=== PATIENT | male | born 1975 | race Caucasian/White ===

== ENCOUNTER 2018-07-13 10:07 | Emergency (ER) | payer MEDICAID ==
[2018-07-13] MEDS ORDERED: ALPRAZOLAM 0.5 MG TABLET PO ONE (11:03)
[2018-07-13 11:04] VITALS: BP 145/95
--- NOTE | 2018-07-13 11:10 | ER Document Report ---
ED General - General Mode of Arrival: Ambulatory Information source: Patient TRAVEL OUTSIDE OF THE U.S. IN LAST 30 DAYS: No - General Chief Complaint: Psych Problem Stated Complaint: PSYCH EVAL Time Seen by Provider: 07/13/18 10:52 Primary Care Provider: [facility] [Outside] - Follow up as needed - [facility] Notes: Patient is a 42-year-old male history of depression and anxiety presents to the emergency department with report that he has not been taking any Klonopin or medications for depression for the last 6-8 months and found out yesterday that his 15-year-old daughter who is in [place] attempted suicide. She is apparently alive, but his ex- will not let him have any contact with her. He states that 1 month ago the daughter had gone to a psychiatric facility previously. The patient reports he was doing fine 2 days ago but last night he did not sleep and states she feels anxious and nervous. He denies any suicidal or homicidal ideation no hallucinations. No alcohol use. Patient reports a skin rash he has noted for the last month intermittently more so on the chest where he shaves. He denies any fever or chills. No chest pain or shortness of breath or abdominal pain or difficulty breathing or abdominal pain. (MELIDA LAZAR) - Related Data Allergies/Adverse Reactions: Penicillins Allergy (Verified 07/13/18 10:09) Past Medical History - General Information source: Patient - Social History Smoking Status: Current Every Day Smoker Chew tobacco use (# tins/day): No Frequency of alcohol use: Occasional Drug Abuse: Marijuana Lives with: Family Family History: Other - Psychiatric Patient has suicidal ideation: No Patient has homicidal ideation: No Renal/ Medical History: Denies: Hx Peritoneal Dialysis Psychiatric Medical History: Reports: Hx Depression Past Surgical History: Reports: Hx Abdominal Surgery - hernia x2 Review of Systems - Review of Systems -: Yes All other systems reviewed and negative Physical Exam - Vital signs Vitals: Temp Pulse Resp BP Pulse Ox 97.9 F 77 16 147/107 H 98 07/13/18 10:24 07/13/18 10:24 07/13/18 10:24 07/13/18 10:24 07/13/18 10:24 - Notes Notes: PHYSICAL EXAMINATION: GENERAL: Well-appearing, well-nourished and in no acute distress. HEAD: Atraumatic, normocephalic. EYES: Pupils equal round and reactive to light, extraocular movements intact, sclera anicteric, conjunctiva are normal. ENT: Nares patent, oropharynx clear without exudates. Moist mucous membranes. NECK: Normal range of motion, supple without lymphadenopathy LUNGS: Breath sounds clear to auscultation bilaterally and equal. No wheezes rales or rhonchi. HEART: Regular rate and rhythm without murmurs ABDOMEN: Soft, nontender, nondistended abdomen. No guarding, no rebound. No masses appreciated. Musculoskeletal: Normal range of motion, no pitting or edema. No cyanosis. NEUROLOGICAL: Cranial nerves grossly intact. Normal speech, normal gait. Normal sensory, motor exams PSYCH: Normal mood, normal affect. SKIN: Warm, Dry, normal turgor. Patient does have mild impetigo on the front of his chest where he has shaved. No other locations. No intertriginous areas or burrowing lesions or suggestion for scabies. (MELIDA LAZAR) Course - Re-evaluation Re-evalutation: 07/13/18 11:09 Patient was given Xanax and will see the psychiatric counselor for further evaluation and to discuss resources. Initial blood pressure somewhat elevated 147/107 but after he calmed down it was 145/95. Patient does not present an imminent risk to himself or others at the current time. 07/13/18 12:05 Patient was seen and evaluated by psychiatry who agreed that patient was stable for outpatient management. He was given a list of resources to follow-up with. (MELIDA LAZAR) - Vital Signs Vital signs: Temp Pulse Resp BP Pulse Ox 97.9 F 77 16 145/95 H 98 07/13/18 10:24 07/13/18 10:24 07/13/18 10:24 07/13/18 11:04 07/13/18 10:24 Discharge - Discharge Clinical Impression: Anxiety, Impetigo Condition: Stable Disposition: HOME, SELF-CARE Instructions: Impetigo ([facility]), Bactroban Ointment ([facility]), Anxiety ([facility]) Additional Instructions: You have been evaluated both medical and behavioral health teams and been deemed appropriate for discharge. You have provided a local resource list of area providers including mobile crisis contact information. Anxiety The physician feels that some of your health problems are being caused by anxiety. Anxiety affects your health in many ways. Anxiety alone can cause palpitations, sweats, chest pains, abdominal pains, shortness of breath, and headaches. It contributes to ulcer disease, high blood pressure, irritable bowel syndrome, and has been shown to cause flare-ups of many other diseases. Anxiety is not a simple disorder to treat. If the anxiety is due to recent life stresses, you may simply need time to "work through" the changes. If the anxiety is due to an underlying unhappiness with yourself or due to psychiatric disturbance, professional help will be needed. Your physician can refer you for further help if needed. Anti-anxiety medication is occasionally given if the stress is acute or if you are having trouble sleeping. Chronic or frequent use of these medications is not a good idea because the body becomes reliant on it, preventing you from dealing with life's normal stresses. AT ANY TIME, IF YOUR SYMPTOMS CHANGE SIGNIFICANTLY OR WORSEN OR YOU DEVELOP NEW SYMPTOMS, RETURN TO THE EMERGENCY DEPARTMENT IMMEDIATELY FOR RE-EVALUATION. Prescriptions: Alprazolam [Xanax 0.5 mg Tablet] 0.5 mg PO Q6HP PRN #10 tablet PRN Reason: Mupirocin Calcium [Bactroban 2% Cream 15 gm] 1 applic TP BID #1 tube Forms: Return to Work Referrals: [facility] [Outside] - Follow up as needed
--- NOTE | 2018-07-13 12:40 | PSYCHOLOGICAL NOTE ---
Psych Note - Psych Note Date seen by psych provider: 07/13/18 Time seen by psych provider: 12:15 Psych Note: Reason for Consult: Anxiety Patient is a 42-year-old male history of depression and anxiety presents to the emergency department with report that he has not been taking any Klonopin or medications for depression for the last 6-8 months and found out yesterday that his 15-year-old daughter who is in [place] attempted suicide. Patient is alert and orientated to person, place, time and circumstance. Mood is dysphoric with tearful affect. Patient denies suicidal and homicidal ideations. Delusions are absent behaviors congruent with an intact reality b ased presentation i.e. organized and linear thought process. Eye contact is poor. Conversational speech is within normal rate, tone and prosody. Intellectual abilities appear to be within the average range. Attention and concentration are good. Insight, judgment, impulse control are good as evidenced by patient coming to [facility] when in crisis after being unable to engage in normal coping skills. No medication recommendations at this time 300.00 (F41.9) Unspecified Anxiety Disorder Impression/Plan: Patient is cleared from acute psychiatric services. Patient does not meet IVC criteria per [place] GS 122C. Patient reports being overwhelmed. He just found out that his daughter attempted to kill herself last night. His daughter lives in [place] and he has been unable to locate which hospital she is at. He confirms that he has spoken to her while she is in the hospital however since that conversation the biological mother has refused to allow him to receive any information. Patient effectively engaged in organized and linear conversation and was positive with problem solving skills. Patient received resource list of area providers including mobile crisis contact information. Clinician discussed HIPAA laws in regards to the patient's frustration of not being able to receive any information over the phone from [place] hospitals. Dr. Harkins was consulted on the care and management of this patient; attending physician is in agreement with recommendations and disposition.
== END 2018-07-13 12:28 | disposition home or self-care (01) ==
LOC: ER 10:07
DX: F41.9 Anxiety disorder, unspecified (principal); L01.00 Impetigo, unspecified; F17.200 Nicotine dependence, unspecified, uncomplicated; Z88.0 Allergy status to penicillin
CPT/HCPCS: 99284

== ENCOUNTER 2018-08-22 18:32 | Emergency (ER) | payer SELFPAY ==
[2018-08-22 18:40] VITALS: BP 134/92
[2018-08-22] MEDS ORDERED: NORMAL SALINE 1000 ML 1,000 ML IV ONE (20:13)
[2018-08-22] MEDS ORDERED: DICYCLOMINE HCL 20 MG TABLET PO ONE (20:13)
[2018-08-22] MEDS ORDERED: ONDANSETRON HCL INJ/PF 4 MG/2 ML SDV IV ONE (20:13)
--- NOTE | 2018-08-22 20:16 | ER Document Report ---
ED Medical Screen (RME) - General Chief Complaint: Abdominal Cramping Stated Complaint: CRAMPS/NAUSEA Time Seen by Provider: 08/22/18 20:13 Notes: Patient is a 42-year-old male who presents emergency department with a chief complaint of cramps and dehydration. He states that he had his symptoms today. He states he felt he worked too hard at work. 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 Patient states that he sweats profusely. Has cramps in his abdomen and in his hands. Complains of nausea. Exam: Abdomen soft I have greeted and performed a rapid initial assessment of this patient. A comprehensive ED assessment and evaluation of the patient, analysis of test results and completion of medical decision making process will be conducted by an additional ED providers. TRAVEL OUTSIDE OF THE [place] IN LAST 30 DAYS: No - Related Data Allergies/Adverse Reactions: Penicillins Allergy (Verified 07/13/18 10:09) Past Medical History Renal/ Medical History: Denies: Hx Peritoneal Dialysis Psychiatric Medical History: Reports: Hx Depression Past Surgical History: Reports: Hx Abdominal Surgery - hernia x2 Physical Exam - Vital signs Vitals: Temp Pulse Resp BP Pulse Ox 98.1 F 129 H 18 134/92 H 100 08/22/18 18:39 08/22/18 18:39 08/22/18 18:39 08/22/18 18:39 08/22/18 18:39 Course - Vital Signs Vital signs: Temp Pulse Resp BP Pulse Ox 98.1 F 129 H 18 134/92 H 100 08/22/18 18:39 08/22/18 18:39 08/22/18 18:39 08/22/18 18:39 08/22/18 18:39
[2018-08-22 20:29] LABS: APPEARANCE,URINE CLOUDY; BILIRUBIN,URINE SMALL (NEGATIVE); COLOR,URINE DARK YELLOW; GLUCOSE, URINE NEGATIVE (NEGATIVE); KETONES,URINE TRACE mg/dL (NEGATIVE); LEUKOCYTE ESTERASE,URINE SMALL (NEGATIVE); NITRITE,URINE NEGATIVE (NEGATIVE); PROTEIN,URINE 30 mg/dL (NEGATIVE); URINE SPECIFIC GRAVITY 1.026
== END 2018-08-23 00:06 | disposition left against medical advice (07) ==
LOC: ER 18:32
DX: R10.9 Unspecified abdominal pain (principal); R61 Generalized hyperhidrosis; R11.0 Nausea; Z88.0 Allergy status to penicillin
CPT/HCPCS: 99281; 96374; 81001; J3490; J2405; J7030; 96361

== ENCOUNTER 2019-01-14 17:11 | Emergency (ER) | payer SELFPAY ==
[2019-01-14] MEDS ORDERED: ONDANSETRON HCL INJ/PF 4 MG/2 ML SDV IV ONE (18:39)
[2019-01-14] MEDS ORDERED: NORMAL SALINE 1000 ML 1,000 ML IV ONE ×2 (18:39→21:39)
--- NOTE | 2019-01-14 18:41 | ER Document Report ---
ED Medical Screen (RME) - General Chief Complaint: Pain All Over Stated Complaint: POSSIBLE DEHYDRATION,CRAMPING Time Seen by Provider: 01/14/19 18:37 Mode of Arrival: Ambulatory Information source: Patient Notes: 43-year-old male presents the emergency department with body cramps all over. 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 Reports he has been working outside all day sweating and drinking fluids. Patient is dry now. Reports he vomited upon arrival. Reports his whole body is cramping up. Denies fever diarrhea. I have greeted and performed a rapid initial assessment of this patient. A comprehensive ED assessment and evaluation of the patient, analysis of test results and completion of the medical decision making process will be conducted by additional ED providers. Dictation of this chart was performed using voice recognition software; therefore, there may be some unintended grammatical errors. TRAVEL OUTSIDE OF THE [place] IN LAST 30 DAYS: No - Related Data Allergies/Adverse Reactions: Penicillins Allergy (Verified 01/14/19 18:31) Past Medical History - Social History Frequency of alcohol use: Occasional Renal/ Medical History: Denies: Hx Peritoneal Dialysis Psychiatric Medical History: Reports: Hx Depression Past Surgical History: Reports: Hx Abdominal Surgery - hernia x2 Physical Exam - Vital signs Vitals: Temp Pulse Resp BP Pulse Ox 98.0 F 108 H 20 141/96 H 99 01/14/19 18:08 01/14/19 18:08 01/14/19 18:08 01/14/19 18:08 01/14/19 18:08 Course - Vital Signs Vital signs: Temp Pulse Resp BP Pulse Ox 98.0 F 108 H 20 141/96 H 99 01/14/19 18:08 01/14/19 18:08 01/14/19 18:08 01/14/19 18:08 01/14/19 18:08
[2019-01-14 19:05] LABS: APPEARANCE,URINE SLIGHTLY-CLOUDY; BILIRUBIN,URINE NEGATIVE (NEGATIVE); COLOR,URINE YELLOW; GLUCOSE, URINE NEGATIVE (NEGATIVE); KETONES,URINE NEGATIVE (NEGATIVE); LEUKOCYTE ESTERASE,URINE TRACE (NEGATIVE); NITRITE,URINE NEGATIVE (NEGATIVE); PROTEIN,URINE NEGATIVE (NEGATIVE); URINE SPECIFIC GRAVITY 1.008; UROBILINOGEN,URINE NEGATIVE mg/dL (<2.0)
[2019-01-14 19:10] LABS: ABSOLUTE BASOPHILS # (AUTO) 0.1 10^3/uL (0.0-0.2); ABSOLUTE LYMPHOCYTES (AUTO) 1.9 10^3/uL (0.5-4.7); ABSOLUTE MONOCYTES (AUTO) 0.6 10^3/uL (0.1-1.4); BASOPHILS % (AUTO) 0.7 % (0-2); EOSINOPHILS % (AUTO) 0.2 % (0-6); HEMATOCRIT 45.3 % (37.9-51.0); HEMOGLOBIN 15.7 g/dL (13.5-17.0); LYMPHOCYTES % (AUTO) 12.3 % (13-45); MEAN CORPUSCULAR HEMOGLOBIN 31.4 pg (27.0-33.4); MEAN CORPUSCULAR HGB CONC 34.7 g/dL (32.0-36.0); MEAN CORPUSCULAR VOLUME 91 fl (80-97); MONOCYTES % (AUTO) 3.7 % (3-13); PLATELET COUNT 245 10^3/uL (150-450); SEGMENTED NEUTROPHILS % (AUTO) 83.1 % (42-78); TOTAL CELLS COUNTED % (AUTO) 100 %; WHITE BLOOD COUNT 15.6 10^3/uL (4.0-10.5)
[2019-01-14 19:52] LABS: ALBUMIN 5.2 g/dL (3.5-5.0); ALKALINE PHOSPHATASE 74 U/L (38-126); ANION GAP 15 (5-19); ASPARTATE AMINO TRANSFERASE 39 U/L (17-59); BILIRUBIN,DIRECT 0.2 mg/dL (0.0-0.4); BILIRUBIN,TOTAL 0.9 mg/dL (0.2-1.3); BLOOD UREA NITROGEN 25 mg/dL (7-20); CARBON DIOXIDE 24 mmol/L (22-30); CHLORIDE 94 mmol/L (98-107); CREATINE KINASE 191 U/L (55-170); GLUCOSE 116 mg/dL (75-110); POTASSIUM 4.3 mmol/L (3.6-5.0); TOTAL PROTEIN 7.8 g/dL (6.3-8.2)
[2019-01-14] MEDS ORDERED: DIPHENHYDRAMINE HCL 50 MG/ML VIAL IV ONE (21:39)
[2019-01-14] MEDS ORDERED: KETOROLAC TROMETHAMINE INJ/PF 30 MG/1 ML SDV IV ONE (21:39)
[2019-01-14] MEDS ORDERED: PROCHLORPERAZINE EDISYLATE INJ 10 MG/2 ML VIAL IV ONE (21:39)
[2019-01-14 22:34] VITALS: BP 121/77
--- NOTE | 2019-01-14 23:46 | ER Document Report ---
ED General - General Chief Complaint: Pain All Over Stated Complaint: POSSIBLE DEHYDRATION,CRAMPING Time Seen by Provider: 01/14/19 18:37 Mode of Arrival: Ambulatory Notes: 43-year-old male presents emergency department complaining of dehydration and cramping as well as muscle spasms in his legs and his back. States that he was working outside and sweating heavily and since then he has been having the symptoms. Also admits to vomiting once and having diarrhea twice neither of which had any blood in them. Denies any fevers or chills. Admits a history of Mario's disease and states that previously when he is gotten overheated the symptoms have have never resolved with fluids. Patient also states that he has a migraine headache that starts on his right-hand side and radiates around his head. Feels like his prior migraines. Admits neck pain but denies any change with movement of his back. Denies any difference from his prior migraines. Denies any numbness, tingling, weakness or blurry vision. States that he did not take his Imitrex because he has not had a prescription in some time. TRAVEL OUTSIDE OF THE [place] IN LAST 30 DAYS: No - Related Data Allergies/Adverse Reactions: Penicillins Allergy (Verified 01/14/19 18:31) Past Medical History - General Information source: Patient - Social History Smoking Status: Current Every Day Smoker Frequency of alcohol use: Occasional Drug Abuse: None Family History: Reviewed & Not Pertinent, Other - Psychiatric Patient has suicidal ideation: No Patient has homicidal ideation: No Renal/ Medical History: Denies: Hx Peritoneal Dialysis Psychiatric Medical History: Reports: Hx Depression Past Surgical History: Reports: Hx Abdominal Surgery - hernia x2 Review of Systems - Review of Systems Constitutional: See HPI, Diaphoresis EENT: No symptoms reported Cardiovascular: No symptoms reported Respiratory: No symptoms reported Gastrointestinal: See HPI Musculoskeletal: See HPI Neurological/Psychological: See HPI -: Yes All other systems reviewed and negative Physical Exam - Vital signs Vitals: Temp Pulse Resp BP Pulse Ox 98.0 F 108 H 20 141/96 H 99 01/14/19 18:08 01/14/19 18:08 01/14/19 18:08 01/14/19 18:08 01/14/19 18:08 Interpretation: Tachycardic - Notes Notes: GENERAL: Awake, interacts well, appears uncomfortable. HEAD: Normocephalic, atraumatic EYES: Pupils equal, round and reactive to light, extraocular movements intact. ENT: Oral mucosa moist, tongue midline. NECK: Full range of motion, supple, trachea midline. Adjustments, negative Kernig's and Brudzinski sign. LUNGS: Clear to auscultation bilaterally, no wheezes, rales or rhonchi, no respiratory distress. HEART: Mildly tachycardic rate and rhythm, no murmurs, gallops, rubs. ABDOMEN: Soft, nontender, nondistended, bowel sounds present in all 4 quadrants. EXTREMITIES: Moves all 4 extremities spontaneously, no edema, radial and dorsalis pedis pulses 2/4 bilaterally. No cyanosis. NEUROLOGICAL: Alert and oriented x3, normal speech, cranial nerves II through XII grossly intact, biceps and patellar DTRs 2+ bilaterally. PSYCH: Normal mood, normal affect. SKIN: Warm, diaphoretic, normal turgor, no rashes or lesions noted. Course - Re-evaluation Re-evalutation: 01/15/19 00:15 CBC shows leukocytosis of 15.6, sodium slightly low 133, BUN and creatinine elevated at 25 and 1.52, patient states he has been told in the past that he has kidney disease, patient was hydrated and encouraged to follow-up on this and have repeat kidney function performed in 1 to 2 weeks. I do not have any old values to compare to, urinalysis shows trace leukocyte esterase, only 1 RBC, no evidence of rhabdomyolysis. Patient was treated with Toradol, Compazine and Benadryl, feels much better, hydrated with normal saline and would like to go home. - Vital Signs Vital signs: Temp Pulse Resp BP Pulse Ox 97.9 F 88 18 121/77 96 01/14/19 22:33 01/14/19 22:33 01/14/19 22:33 01/14/19 22:33 01/14/19 22:33 - Laboratory Result Diagrams: 01/14/19 18:58 01/14/19 18:58 Laboratory results interpreted by me: 01/14/19 01/14/19 01/14/19 18:48 18:58 18:58 WBC 15.6 H Lymph % (Auto) 12.3 L Absolute Neuts (auto) 13.0 H Seg Neutrophils % 83.1 H Sodium 133.0 L Chloride 94 L BUN 25 H Creatinine 1.52 H Est GFR (MDRD) Non-Af 51 L Glucose 116 H Calcium 11.0 H Creatine Kinase 191 H Albumin 5.2 H Ur Leukocyte Esterase TRACE H Discharge - Discharge Clinical Impression: Dehydration, Mario disease Migraine Qualifiers: Migraine type: unspecified Status migrainosus presence: with status migrainosus Intractability: intractable Qualified Code(s): G43.911 - Migraine, unspecified, intractable, with status migrainosus Condition: Stable Disposition: HOME, SELF-CARE Additional Instructions: Migraine Headache The physician feels that your symptoms are due to a migraine attack. Migraines are caused by changes in the blood vessels of the head. Arteries go into spasm, often causing warning symptoms that a headache may begin soon. As the spasm goes away, the vessels dilate and throb, causing the pounding pain of a migraine headache. Migraines often cause nausea and vomiting. The treatment of headaches varies with severity and cause of pain. Not all headaches need pain shots -- in fact, there is evidence that using narcotics for headaches may make them worse in the long run. The physician will determine the therapy that's in your best interest for this particular headache. Medications are available that may prevent migraines, or stop them as they first occur. If one medication is not helpful, try another. If migraines are frequent, be patient -- follow the doctor's recommendations. Call the physician if you are worsening, or if new symptoms arise.
== END 2019-01-14 23:55 | disposition home or self-care (01) ==
LOC: ER 17:11
DX: E86.0 Dehydration (principal); G43.911 Migraine, unspecified, intractable, with status migrainosus; E74.04 McArdle disease; R11.10 Vomiting, unspecified; R19.7 Diarrhea, unspecified; M54.2 Cervicalgia; R61 Generalized hyperhidrosis; R00.0 Tachycardia, unspecified; D72.829 Elevated white blood cell count, unspecified; F17.200 Nicotine dependence, unspecified, uncomplicated; Z88.0 Allergy status to penicillin
CPT/HCPCS: 99284; 96361; 96374; 96375; 36415; 82550; 85025; 80053; 81001; J1200; J1885; J0780; J2405; J7030

== ENCOUNTER 2019-03-29 16:51 | Emergency (ER) | payer SELFPAY ==
[2019-03-29] MEDS ORDERED: CYCLOBENZAPRINE HCL 10 MG TABLET PO ONE (17:51)
[2019-03-29] MEDS ORDERED: DEXAMETHASONE SOD PHOS INJ 10 MG/1 ML VIAL IM ONE (17:51)
[2019-03-29] MEDS ORDERED: KETOROLAC TROMETHAMINE 60 MG/2 ML SDV IM ONE (17:51)
--- NOTE | 2019-03-29 17:57 | ER Document Report ---
HPI - HPI Time Seen by Provider: 03/29/19 17:43 Pain Level: 4 Notes: A 43-year-old male with a history of lower back pain presents to the ED for acute onset of low back pain after he felt a pop in his lower back yesterday. Patient states pain is 8 out of 10, throbbing achy. Denies any fevers chills. Has tried qhav-moh-wiejnus ibuprofen Tylenol without relief. Worse with time, nothing makes better. Patient states pain is worse when he bends his knees. Denies any bowel bladder dysfunction. Denies fevers, chills, chest pain,palpitations, shortness of breath, dyspnea, nausea, vomiting, diarrhea, abdominal pain, hematuria, LH, dizziness, syncope, headaches, wheezing, ST, URI, neck pain, weakness, bowel or bladder dysfunction, saddle anesthesia, numbness or tingling in bilateral upper or lower extremities equally, muscle paralysis, weakness in bilateral upper or lower extremities equally or rash. - REPRODUCTIVE Reproductive: DENIES: : Past Medical History - General Information source: Patient - Social History Smoking Status: Current Every Day Smoker Chew tobacco use (# tins/day): No Frequency of alcohol use: Occasional Drug Abuse: None Family History: Reviewed & Not Pertinent, Other - Psychiatric Patient has suicidal ideation: No Patient has homicidal ideation: No Renal/ Medical History: Denies: Hx Peritoneal Dialysis Psychiatric Medical History: Reports: Hx Depression Past Surgical History: Reports: Hx Abdominal Surgery - hernia x2 Vertical Provider Document - CONSTITUTIONAL Agree With Documented VS: Yes Exam Limitations: No Limitations General Appearance: WD/WN Notes: PHYSICAL EXAMINATION:reviewed vital signs by RN GENERAL: Well-appearing, well-nourished and in no acute distress. HEAD: Atraumatic, normocephalic. EYES: Pupils equal round and reactive to light, extraocular movements intact, sclera anicteric, conjunctiva are normal. ENT: Nares patent, oropharynx clear without exudates. Moist mucous membranes. NECK: Normal range of motion, supple without lymphadenopathy LUNGS: Breath sounds clear to auscultation bilaterally and equal. No wheezes rales or rhonchi. HEART: Regular rate and rhythm without murmurs ABDOMEN: Soft, nontender, nondistended abdomen. No guarding, no rebound. No masses appreciated. Musculoskeletal: Normal range of motion, no pitting or edema. No cyanosis. Pain with flexion and extension at 45 degrees, positive straight leg test bilaterally. Normal hip rotation. DTR +2 in BLE equally. Strength 5 out of 5 both distally and proximally to bilateral lower extremities normal motor and sensory function in BLE equally. Distal pulses + 2 BLE equally. Noted paraspinal tenderness near L2 and L3. Strength 5 out of 5 in bilateral lower extremities equally. no spinal tenderness. No CVA tenderness bilaterally. Femoral pulses + 2 bilaterally and equally. No abrasions, scars, lacerations, ecchymosis of any recent trauma. normal gait. NEUROLOGICAL: Cranial nerves grossly intact. Normal speech, normal gait. Normal sensory, motor exams PSYCH: Normal mood, normal affect. SKIN: Warm, Dry, normal turgor, no rashes or lesions noted. - INFECTION CONTROL TRAVEL OUTSIDE OF THE [place] IN LAST 30 DAYS: No Course - Re-evaluation Re-evalutation: 03/29/19 low back pain without any signs of spinal cord compression, cauda equina syndrome , infection, aneurysm or any other serious etiology patient is neurologically intact. Given extremely low risk of these diagnoses further testing and evaluation of these possibilities do not appear to be indicated at this time the patient has been instructed to return if the symptoms worsen or change in anyway. Patient is 60 mg Toradol IM, Decadron 10, Flexeril 10 with home prescription for muscle relaxers anti-inflammatories and advised to follow- up with primary care provider, orthopedic and or chiropractor. X-ray negative for any acute fracture, dislocation. Advised to not drive, drink or operate machinery while taking medication cause sedation or impairment of cognitive function. - Vital Signs Vital signs: Temp Pulse Resp BP Pulse Ox 98.6 F 106 H 22 H 142/86 H 97 03/29/19 17:41 03/29/19 17:41 03/29/19 17:41 03/29/19 17:41 03/29/19 17:41 Discharge - Discharge Clinical Impression: Lower back pain Condition: Stable Disposition: HOME, SELF-CARE Instructions: Ice Packs ([facility]), Low Back Pain ([facility]), Muscle Relaxers ([facility]), Muscle Strain ([facility]), Myalagia (Muscle Pain) ([facility]), Pain Medication Injection ([facility]), Warm Packs ([facility]) Additional Instructions: Your x-ray was normal. Do not drive, drink or operate heavy machinery while taking medication cause sedation or impairment of cognitive function. Follow-up with the orthopedic primary doctor. Return immediately for any new or worsening symptoms. Follow up with primary care provider, call tomorrow to make followup appointment. Prescriptions: Prednisone [Deltasone 20 mg Tablet] 3 tab PO DAILY 5 Days #15 tablet Cyclobenzaprine HCl [Flexeril 10 mg Tablet] 10 mg PO TIDP PRN #9 tab PRN Reason: Naproxen 500 mg PO BID #10 tablet Forms: Return to Work Referrals: ALEXANDER MILLAN MD [ACTIVE PROVISIONAL STAFF] - Follow up as needed MELIDA RAMIREZ MD [COMMUNITY BASED STAFF] - Follow up as needed
[2019-03-29] MEDS ORDERED: HYDROCODONE/ACETAMINOPHEN 5-325 MG (6 TAB/ER DISP) PO PRN (17:58)
--- NOTE | 2019-03-29 18:21 | RADIOLOGY REPORT (SQ) ---
EXAM DESCRIPTION: L SPINE WHOLE COMPLETED DATE/TIME: 03/29/2019 6:00 pm REASON FOR STUDY: lower back pain, heard a pop COMPARISON: None. NUMBER OF VIEWS: Five views including obliques. TECHNIQUE: AP, lateral, oblique, and sacral radiographic images acquired of the lumbar spine. LIMITATIONS: None. FINDINGS: MINERALIZATION: Normal. SEGMENTATION: Normal. No transitional anatomy. ALIGNMENT: Normal. VERTEBRAE: Maintained height. No fracture or worrisome bone lesion. DISCS: Preserved height. No significant osteophytes or end plate irregularity. POSTERIOR ELEMENTS: Pedicles and facets are intact. No pars defect or posterior arch defects. HARDWARE: None in the spine. PARASPINAL SOFT TISSUES: Normal. PELVIS: Intact as visualized. No fractures or worrisome bone lesions. SI joints intact. OTHER: No other significant finding. IMPRESSION: NORMAL 5 VIEW LUMBAR SPINE. TECHNICAL DOCUMENTATION: JOB ID: [id number] [employer]- All Rights Reserved Reading location - IP/workstation name: [email or web address]
[2019-03-29 18:56] VITALS: BP 119/85
== END 2019-03-29 18:56 | disposition home or self-care (01) ==
LOC: ER 16:51
DX: M54.5 Low back pain (principal); F17.200 Nicotine dependence, unspecified, uncomplicated
CPT/HCPCS: 99283; 96372; 72110; J1885; J1100

== ENCOUNTER 2019-06-18 17:40 | Emergency (ER) | payer SELFPAY ==
--- NOTE | 2019-06-18 18:12 | EKG REPORT ---
SEVERITY:- ABNORMAL ECG - SINUS RHYTHM CONSIDER LEFT VENTRICULAR HYPERTROPHY : Confirmed by: Ros Littlejohn MD 18-Jun-2019 18:12:02
--- NOTE | 2019-06-18 18:15 | ER Document Report ---
ED Medical Screen (RME) - General Chief Complaint: Chest Pain Stated Complaint: CHEST PAIN Time Seen by Provider: 06/18/19 18:11 TRAVEL OUTSIDE OF THE [place] IN LAST 30 DAYS: No - HPI Notes: 06/18/19 18:14 Patient is a 43-year-old male no significant past medical history who presents complaint of right sided chest pain that began this morning. Patient states that the pain is worse when he tries to take a deep breath or if he pushes in the specific area. The pain does not radiate. He is able to eat and drink without difficulty. He is urinating normally. Denies any prolonged immobilization, distance travel, recent surgery/trauma, personal cancer history, hormone use, or previous DVT/PE. Denies MARTÍNEZ, fever, neck pain, URI, n/v/d, Abd pain, dysuria, back pain, or rash. I have treated and performed a rapid initial assessment of this patient. A comprehensive ED assessment and evaluation of the patient, analysis of test results and completion of medical decision making process will be conducted by additional ED providers. PHYSICAL EXAMINATION: GENERAL: Well-appearing, well-nourished and in no acute distress. A&Ox4. Answers questions appropriately. LUNGS: Breath sounds clear to auscultation bilaterally and equal. No wheezes rales or rhonchi. HEART: Regular rate and rhythm without murmurs, rubs, gallops. Extremities: No cyanosis, clubbing, or edema b/l. Ramez negative bilaterally. No lower extremity asymmetry. NEUROLOGICAL: Normal speech, normal gait. PSYCH: Normal mood, normal affect. - Related Data Allergies/Adverse Reactions: Penicillins Allergy (Verified 03/29/19 17:41) Past Medical History - Social History Frequency of alcohol use: None Drug Abuse: None Renal/ Medical History: Denies: Hx Peritoneal Dialysis Psychiatric Medical History: Reports: Hx Depression Past Surgical History: Reports: Hx Abdominal Surgery - hernia x2 Physical Exam - Vital signs Vitals: Temp Pulse Resp BP 98.5 F 100 20 130/81 H 06/18/19 17:58 06/18/19 17:58 06/18/19 17:58 06/18/19 17:58 Course - Vital Signs Vital signs: Temp Pulse Resp BP Pulse Ox 98.5 F 100 20 130/81 H 06/18/19 17:58 06/18/19 17:58 06/18/19 17:58 06/18/19 17:58
[2019-06-18 18:33] LABS: ABSOLUTE EOSINOPHILS # (AUTO) 0.2 10^3/uL (0.0-0.6); ABSOLUTE LYMPHOCYTES (AUTO) 3.4 10^3/uL (0.5-4.7); ABSOLUTE MONOCYTES (AUTO) 0.5 10^3/uL (0.1-1.4); ABSOLUTE NEUT (AUTO) 4.3 10^3/uL (1.7-8.2); BASOPHILS % (AUTO) 0.5 % (0-2); EOSINOPHILS % (AUTO) 2.5 % (0-6); HEMATOCRIT 41.8 % (37.9-51.0); HEMOGLOBIN 14.3 g/dL (13.5-17.0); LYMPHOCYTES % (AUTO) 40.5 % (13-45); MEAN CORPUSCULAR HEMOGLOBIN 31.5 pg (27.0-33.4); MEAN CORPUSCULAR HGB CONC 34.2 g/dL (32.0-36.0); MEAN CORPUSCULAR VOLUME 92 fl (80-97); MONOCYTES % (AUTO) 5.5 % (3-13); PLATELET COUNT 214 10^3/uL (150-450); RED BLOOD COUNT 4.54 10^6/uL (4.35-5.55); RED CELL DISTRIBUTION WIDTH 13.3 % (11.5-14.0); TOTAL CELLS COUNTED % (AUTO) 100 %; WHITE BLOOD COUNT 8.4 10^3/uL (4.0-10.5)
--- NOTE | 2019-06-18 18:47 | RADIOLOGY REPORT (SQ) ---
EXAM DESCRIPTION: CHEST 2 VIEWS COMPLETED DATE/TIME: 06/18/2019 6:28 pm REASON FOR STUDY: CP, rt side COMPARISON: None. TECHNIQUE: Frontal and lateral radiographic views of the chest acquired. NUMBER OF VIEWS: Two view. LIMITATIONS: None. FINDINGS: LUNGS AND PLEURA: No pneumothorax. No consolidation or pleural effusion. MEDIASTINUM AND HILAR STRUCTURES: No contour abnormalities. HEART AND VASCULAR STRUCTURES: Heart normal size. BONES: No acute findings. HARDWARE: None in the chest. OTHER: No other significant finding. IMPRESSION: NO ACUTE FINDINGS. TECHNICAL DOCUMENTATION: JOB ID: [id number] 2010 [employer]- All Rights Reserved Reading location - IP/workstation name: [email or web address]
[2019-06-18 18:53] LABS: ALBUMIN 4.8 g/dL (3.5-5.0); ALKALINE PHOSPHATASE 72 U/L (38-126); ANION GAP 11 (5-19); ASPARTATE AMINO TRANSFERASE 28 U/L (17-59); BILIRUBIN,DIRECT 0.3 mg/dL (0.0-0.4); BILIRUBIN,TOTAL 0.4 mg/dL (0.2-1.3); BLOOD UREA NITROGEN 17 mg/dL (7-20); CALCIUM 10.2 mg/dL (8.4-10.2); CARBON DIOXIDE 28 mmol/L (22-30); CHLORIDE 102 mmol/L (98-107); GLUCOSE 106 mg/dL (75-110); TOTAL PROTEIN 7.9 g/dL (6.3-8.2)
--- NOTE | 2019-06-18 20:33 | ER Document Report ---
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 Patient reports he has no trauma recently no overstrain and no hemoptysis and no productive cough or fever chills or back pain. His chest pain is 9 out of 10. He did report last week he drove to [place] and [facility]. The prior month he flew to [facility]. He denies any prior history of pulmonary embolism he de nies any history of heart disease. Patient did note a few days ago he was bending over on the roof to grab some material and felt something in his right chest. The patient's CK was normal today. TRAVEL OUTSIDE OF THE [place] IN LAST 30 DAYS: No - HPI Onset: This morning Onset/Duration: Sudden, Persistent Quality of pain: Achy Severity: Severe Pain Level: 5 Associated symptoms: Chest pain, Hurts to breath Exacerbated by: Deep breathing Relieved by: Remaining still Similar symptoms previously: No Recently seen / treated by doctor: No - Related Data Allergies/Adverse Reactions: Penicillins Allergy (Verified 03/29/19 17:41) Past Medical History - General Information source: Patient - Social History Smoking Status: Unknown if Ever Smoked Cigarette use (# per day): No Chew tobacco use (# tins/day): No Smoking Education Provided: No Frequency of alcohol use: None Drug Abuse: None Lives with: Family Family History: Reviewed & Not Pertinent, Other - Psychiatric Patient has suicidal ideation: No Patient has homicidal ideation: No Renal/ Medical History: Denies: Hx Peritoneal Dialysis Psychiatric Medical History: Reports: Hx Depression Past Surgical History: Reports: Hx Abdominal Surgery - hernia x2 Review of Systems - Review of Systems Constitutional: No symptoms reported, Malaise, Weakness EENT: No symptoms reported Cardiovascular: See HPI, Chest pain Respiratory: See HPI, Hurts to breathe Gastrointestinal: No symptoms reported Genitourinary: No symptoms reported Male Genitourinary: No symptoms reported Musculoskeletal: No symptoms reported Skin: No symptoms reported Hematologic/Lymphatic: No symptoms reported Neurological/Psychological: No symptoms reported Physical Exam - Vital signs Vitals: Temp Pulse Resp BP 98.5 F 100 20 130/81 H 06/18/19 17:58 06/18/19 17:58 06/18/19 17:58 06/18/19 17:58 Interpretation: Normal - General General appearance: Alert In distress: Moderate - HEENT Head: Normocephalic Eyes: Normal Conjunctiva: Normal Cornea: Normal Extraocular movements intact: Yes Eyelashes: Normal Pupils: PERRL Nasal: Normal Mouth/Lips: Normal Mucous membranes: Normal Pharynx: Normal Neck: Normal - Respiratory Respiratory status: No respiratory distress Chest status: Tender - Right anterior chest mid clavicular T7 pain on range of motion and palpation and inspiration Breath sounds: Normal Chest palpation: Normal - Cardiovascular Rhythm: Regular Heart sounds: Normal auscultation Murmur: No Friction rub: No Pranav's crunch: No - Abdominal Inspection: Normal Distension: No distension Bowel sounds: Normal Tenderness: Nontender Organomegaly: No organomegaly - Back Back: Normal - Extremities General upper extremity: Normal inspection General lower extremity: Normal inspection - Neurological Neuro grossly intact: Yes Cognition: Normal Orientation: AAOx4 [place] Coma Scale Eye Opening: Spontaneous Jose Coma Scale Verbal: Oriented Jose Coma Scale Motor: Obeys Commands [place] Coma Scale Total: 15 Speech: Normal Cranial nerves: Normal, Tongue deviation Motor strength normal: LUE, RUE, LLE, RLE - Psychological Associated symptoms: Normal affect - Skin Skin Temperature: Warm Skin Moisture: Dry Course - Vital Signs Vital signs: Temp Pulse Resp BP Pulse Ox 98.5 F 100 18 114/85 98 06/18/19 17:58 06/18/19 17:58 06/18/19 21:01 06/18/19 21:01 06/18/19 21:01 - Laboratory Result Diagrams: 06/18/19 18:20 06/18/19 18:20 - Diagnostic Test Radiology reviewed: Reports reviewed - EKG Interpretation by Me EKG shows normal: Sinus rhythm Critical Care Note - Critical Care Note Total time excluding time spent on procedures (mins): 90 Comments: Considering this patient's travel history a CTA of the chest was obtained to rule out PE right-sided chest versus intercostal muscle spasm. CPK was also ordered. I advised patient of findings that were negative for CTA of chest and of his labs. Discharge - Discharge Clinical Impression: Chest pain at rest, Pleuritic chest pain Condition: Good Disposition: HOME, SELF-CARE Additional Instructions: Follow-up with personal doctor this week return to ER as needed take medicines as directed encourage fluids Prescriptions: Dexamethasone [Decadron 4 Mg Tablet] 4 mg PO BID #8 tablet Doxycycline Monohydrate 100 mg PO BID 7 Days #14 capsule Chlorzoxazone [Parafon Forte Dsc 500 Mg Tablet] 500 mg PO BID #14 tablet Oxycodone HCl/Acetaminophen [Percocet 5-325 mg Tablet] 1 tab PO TID #15 tablet Oxycodone HCl/Acetaminophen [Percocet 5-325 mg Tablet] 1 tab PO BID 7 Days #15 tablet Forms: Return to Work
[2019-06-18] MEDS ORDERED: HYDROMORPHONE HCL INJ/PF 2 MG/ML AMPULE IV ONE (20:42)
[2019-06-18] MEDS ORDERED: KETOROLAC TROMETHAMINE INJ/PF 30 MG/1 ML SDV IV ONE (20:42)
[2019-06-18] MEDS ORDERED: DIPHENHYDRAMINE HCL 50 MG/ML VIAL IV ONE (20:43)
[2019-06-18 21:42] LABS: CREATINE KINASE MB 1.22 ng/mL (<4.55)
[2019-06-18 21:43] LABS: TROPONIN I < 0.012 ng/mL
--- NOTE | 2019-06-18 21:58 | RADIOLOGY REPORT (SQ) ---
CT CHEST ANGIOGRAPHY WITHOUT THEN WITH IV CONTRAST EXAM DATE: 06/18/2019 8:39 PM [facility]MI[facility] HISTORY: Shortness of breath. COMPARISON: None. TECHNIQUE: CT angiogram of the chest with IV contrast. 3-D MIP images were obtained in coronal and sagittal reconstructions. This exam was performed according to our departmental dose-optimization program, which includes automated exposure control, adjustment of the mA and/or kV according to patient size and/or use of iterative reconstruction technique. FINDINGS: No filling defects are identified in the pulmonary trunk, main left and right pulmonary arteries, or the segmental branches. The thyroid gland is normal. There are calcified left hilar lymph nodes and calcified granulomas in the left lung suggestive of old granulomatous disease. The heart size is normal without pericardial effusion. The thoracic aorta is normal caliber. No consolidation, pleural effusion, or pneumothorax is identified. The visualized upper abdomen demonstrates no acute findings. No acute osseous findings are seen. IMPRESSION: 1. No acute pulmonary embolism. 2. Sequela of old granulomatous disease in the left lung.
[2019-06-18] MEDS ORDERED: FENTANYL CITRATE INJ/PF 100 MCG/2 ML AMPUL IV ONE (23:14)
[2019-06-19 00:01] VITALS: BP 123/86
== END 2019-06-19 00:05 | disposition home or self-care (01) ==
LOC: ER 17:40
DX: R07.81 Pleurodynia (principal); R07.9 Chest pain, unspecified; R06.00 Dyspnea, unspecified; Z88.0 Allergy status to penicillin
CPT/HCPCS: 93005; 99291; 99292; 96374; 96375; 36415; 82553; 82550; 85025; 80053; 84484; 71046; 71275; 93010; J1200; J3010; J1885; J1170

== ENCOUNTER 2019-10-03 10:52 | Emergency (ER) | payer MEDICAID ==
[2019-10-03 11:57] LABS: ALBUMIN 5.2 g/dL (3.5-5.0); ALKALINE PHOSPHATASE 81 U/L (38-126); ANION GAP 13 (5-19); ASPARTATE AMINO TRANSFERASE 37 U/L (17-59); BILIRUBIN,TOTAL 1.1 mg/dL (0.2-1.3); BLOOD UREA NITROGEN 21 mg/dL (7-20); CARBON DIOXIDE 25 mmol/L (22-30); CHLORIDE 97 mmol/L (98-107); GLUCOSE 80 mg/dL (75-110); POTASSIUM 3.8 mmol/L (3.6-5.0); TOTAL PROTEIN 8.1 g/dL (6.3-8.2)
[2019-10-03 12:01] LABS: ABSOLUTE BASOPHILS # (AUTO) 0.1 10^3/uL (0.0-0.2); ABSOLUTE LYMPHOCYTES (AUTO) 3.1 10^3/uL (0.5-4.7); ABSOLUTE MONOCYTES (AUTO) 0.5 10^3/uL (0.1-1.4); ABSOLUTE NEUT (AUTO) 9.5 10^3/uL (1.7-8.2); BASOPHILS % (AUTO) 0.5 % (0-2); EOSINOPHILS % (AUTO) 0.3 % (0-6); LYMPHOCYTES % (AUTO) 23.5 % (13-45); MEAN CORPUSCULAR HEMOGLOBIN 31.7 pg (27.0-33.4); MEAN CORPUSCULAR HGB CONC 34.6 g/dL (32.0-36.0); MEAN CORPUSCULAR VOLUME 92 fl (80-97); PLATELET COUNT 278 10^3/uL (150-450); RED BLOOD COUNT 5.35 10^6/uL (4.35-5.55); RED CELL DISTRIBUTION WIDTH 13.7 % (11.5-14.0); SEGMENTED NEUTROPHILS % (AUTO) 71.7 % (42-78); TOTAL CELLS COUNTED % (AUTO) 100 %; WHITE BLOOD COUNT 13.2 10^3/uL (4.0-10.5)
[2019-10-03 12:29] LABS: APPEARANCE,URINE CLEAR; COLOR,URINE LIGHT YELLOW
[2019-10-03 12:30] LABS: BILIRUBIN,URINE NEGATIVE (NEGATIVE); GLUCOSE, URINE NEGATIVE (NEGATIVE); KETONES,URINE NEGATIVE (NEGATIVE); LEUKOCYTE ESTERASE,URINE TRACE (NEGATIVE); NITRITE,URINE NEGATIVE (NEGATIVE); PROTEIN,URINE NEGATIVE (NEGATIVE); URINE SPECIFIC GRAVITY 1.003; UROBILINOGEN,URINE NEGATIVE mg/dL (<2.0)
[2019-10-03 12:31] LABS: ADD MANUAL MICROSCOPIC YES; BACTERIA,URINE 2+ /HPF
[2019-10-03] MEDS ORDERED: NORMAL SALINE 1000 ML 1,000 ML IV ONE (12:34)
--- NOTE | 2019-10-03 12:34 | ER Document Report ---
ED GI/ - General Chief Complaint: Nausea/Vomiting Stated Complaint: NAUSEA Time Seen by Provider: 10/03/19 11:39 Notes: CHIEF COMPLAINT: Vomiting and dehydration HPI: 43-year-old male presenting to the emergency department complaining of vom iting and dehydration. Patient works as a field crop harvest worker and became very overheated yesterday. States that his urine was very dark brown last night and he did drink as much water as he could hold but then had 2 or 3 episodes of vomiting because he was drinking too much water. Patient has continued to have cramping in the extremities today, no abdominal pain. Is continued with some nausea but no vomiting today. No fever. Patient states he has had dehydration issues in the past with some kidney function problems. ROS: See HPI - all other systems were reviewed and are otherwise negative Constitutional: no fever Eyes: no drainage, no blurred vision ENT: no runny nose, no sore throat Cardiovascular: no chest pain Resp: no SOB, no cough GI: + vomiting, no diarrhea, no abdominal pain : no dysuria Integumentary: no rash Allergy: no hives Musculoskeletal: + extremity pain or swelling Neurological: no numbness/tingling, no weakness MEDICATIONS: I agree with the patient medications as charted by the RN. ALLERGIES: I agree with the allergies as charted by the RN. PAST MEDICAL HISTORY/PAST SURGICAL HISTORY: Reviewed and agree as charted by RN. SOCIAL HISTORY: Reviewed and agree as charted by RN. FAMILY HISTORY: No significant familial comorbid conditions directly related to patient complaint EXAM: Reviewed vital signs as charted by RN. CONSTITUTIONAL: Alert and oriented and responds appropriately to questions. Well-appearing; well-nourished HEAD: Normocephalic; atraumatic EYES: PERRL; Conjunctivae clear, sclerae non-icteric ENT: normal nose; no rhinorrhea; moist mucous membranes; pharynx without lesions noted, no uvula edema or deviation, no tonsillar hypertrophy, phonation normal NECK: Supple without meningismus; non-tender; no cervical lymphadenopathy, no masses CARD: RRR; no murmurs, no clicks, no rubs, no gallops; symmetric distal pulses RESP: Normal chest excursion without splinting or tachypnea; breath sounds clear and equal bilaterally; no wheezes, no rhonchi, no rales, pulse oximetry 98% on room air not hypoxic ABD/GI: Normal bowel sounds; non-distended; soft, non-tender, no rebound, no guarding; no palpable organomegaly or masses. BACK: The back appears normal and is non-tender to palpation, there is no CVA tenderness EXT: Normal ROM in all joints; non-tender to palpation; no cyanosis, no effusions, no edema SKIN: Normal color for age and race; warm; dry; good turgor; no acute lesions noted NEURO: Moves all extremities equally; Motor and sensory function intact PSYCH: The patient's mood and manner are appropriate. Grooming and personal hygi promise are appropriate. MDM: 43-year-old male presenting for possible dehydration. States urine was d arker last night it is yellow in the room right now but not very dark. Patient initial BUN/creatinine were very mildly elevated at 21 and 1.4. He is already received 1 L of IV fluids, will give a second liter of IV fluids here will send a CK total given his complaints and concern for possible rhabdomyolysis. He has no abdominal pain on exam TRAVEL OUTSIDE OF THE [place] IN LAST 30 DAYS: No - Related Data Allergies/Adverse Reactions: Penicillins Allergy (Verified 10/03/19 11:28) Past Medical History - Social History Smoking Status: Former Smoker Family History: Reviewed & Not Pertinent, Other - Psychiatric Patient has homicidal ideation: No Renal/ Medical History: Denies: Hx Peritoneal Dialysis Psychiatric Medical History: Reports: Hx Depression Past Surgical History: Reports: Hx Abdominal Surgery - hernia x2 Physical Exam - Vital signs Vitals: Temp Pulse Resp BP Pulse Ox 98.3 F 102 H 20 140/99 H 98 10/03/19 11:28 10/03/19 11:10/03/19 11:10/03/19 11:10/03/19 11:28 Course - Re-evaluation Re-evalutation: 10/03/19 13:54 Patient is tolerating fluids, given additional fluids given the mild dehydration. Will refer patient to primary care provider for further work-up and management of his frequent dehydration complaints - Vital Signs Vital signs: Temp Pulse Resp BP Pulse Ox 98.3 F 102 H 20 140/99 H 98 10/03/19 11:28 10/03/19 11:28 10/03/19 11:28 10/03/19 11:28 10/03/19 11:28 - Laboratory Result Diagrams: 10/03/19 11:10 10/03/19 11:10 Laboratory results interpreted by me: 10/03/19 10/03/19 10/03/19 11:10 11:10 11:10 WBC 13.2 H Absolute Neuts (auto) 9.5 H Sodium 134.9 L Chloride 97 L BUN 21 H Creatinine 1.40 H Est GFR (MDRD) Non-Af 56 L Calcium 11.0 H Creatine Kinase 410 H Albumin 5.2 H Ur Leukocyte Esterase 10/03/19 11:54 WBC Absolute Neuts (auto) Sodium Chloride BUN Creatinine Est GFR (MDRD) Non-Af Calcium Creatine Kinase Albumin Ur Leukocyte Esterase TRACE H Discharge - Discharge Clinical Impression: Dehydration Condition: Stable Disposition: HOME, SELF-CARE Instructions: Dehydration ([facility]) Additional Instructions: Continue to push fluids at home. Follow-up with a primary care provider for further evaluation and management of your dehydration issues and muscle cramping discomfort. You can be referred on to rheumatology or endocrine if they feel it is needed. Referrals: MADISON MURPHY MD [COMMUNITY BASED STAFF] - Follow up as needed
[2019-10-03 14:34] VITALS: BP 124/78
== END 2019-10-03 14:33 | disposition home or self-care (01) ==
LOC: ER 10:52
DX: E86.0 Dehydration (principal); R11.0 Nausea; R25.2 Cramp and spasm; Z87.891 Personal history of nicotine dependence; Z88.0 Allergy status to penicillin
CPT/HCPCS: 99283; 96360; 36415; 82550; 83690; 85025; 80053; 81001; J7030

== ENCOUNTER 2019-12-29 16:58 | Emergency (ER) | payer MEDICAID ==
[2019-12-29] MEDS ORDERED: OXYCODONE-ACETAMINOPHEN 5-325 MG TABLET PO ONE (17:18)
--- NOTE | 2019-12-29 17:19 | ER Document Report ---
HPI - HPI Time Seen by Provider: 12/29/19 17:10 Pain Level: 4 Notes: Otherwise healthy 44-year-old male presenting to the emergency department with complaints of a puncture wound to his right hand. He states he was using a screwdriver when it slipped and punctured his right hand in between his first and second digits. He feels like it hit the bone. He reports this occurred just prior to arrival. He has not taken any medications for his symptoms. He reports tetanus is up-to-date. - ROS Systems Reviewed and Negative: Yes All other systems reviewed and negative - CONSTITUTIONAL Constitutional: DENIES: Fever, Chills - REPRODUCTIVE Reproductive: DENIES: : - DERM Skin Problems: Puncture Wound Past Medical History - General Information source: Patient - Social History Smoking Status: Current Every Day Smoker Chew tobacco use (# tins/day): No Frequency of alcohol use: Occasional Drug Abuse: Marijuana Family History: Reviewed & Not Pertinent, Other - Psychiatric Patient has homicidal ideation: No Neurological Medical History: Reports: Hx Migraine Renal/ Medical History: Denies: Hx Peritoneal Dialysis Psychiatric Medical History: Reports: Hx Depression Past Surgical History: Reports: Hx Abdominal Surgery - hernia x2 Vertical Provider Document - CONSTITUTIONAL Notes: PHYSICAL EXAMINATION: GENERAL: Well-appearing, well-nourished and in no acute distress. HEAD: Atraumatic, normocephalic. EYES: Pupils equal round extraocular movements intact, conjunctiva are normal. ENT: Nares patent NECK: Normal range of motion LUNGS: No respiratory distress Musculoskeletal: Normal range of motion NEUROLOGICAL: Normal speech, normal gait. PSYCH: Normal mood, normal affect. SKIN: Small puncture wound noted between first and second digits on the right hand. Normal range of motion, no active bleeding noted. - INFECTION CONTROL TRAVEL OUTSIDE OF THE [place] IN LAST 30 DAYS: No Course - Re-evaluation Re-evalutation: There is no retained radiopaque foreign body on x-ray. No osseous injury. The wound was irrigated by the PCT. It was then dressed. Patient will be put on antibiotics as prophylaxis for infection. Patient given ED return precautions. - Vital Signs Vital signs: Temp Pulse Resp BP Pulse Ox 98.0 F 84 16 104/70 98 12/29/19 17:02 12/29/19 17:02 12/29/19 17:02 12/29/19 17:02 12/29/19 17:02 Discharge - Discharge Clinical Impression: Puncture wound of right hand Qualifiers: Encounter type: initial encounter Foreign body presence: without foreign body Qualified Code(s): S61.431A - Puncture wound without foreign body of right hand, initial encounter Condition: Stable Disposition: HOME, SELF-CARE Additional Instructions: There is no evidence of any retained foreign body or fracture. Please take the antibiotics as prescribed. Apply a topical antibiotic ointment such as Neosporin to the area twice daily, keep clean and dry. Return if you have any additional concerns. Prescriptions: Doxycycline Hyclate [Vibramycin 100 mg Tablet] 100 mg PO BID #14 tablet
--- NOTE | 2019-12-29 17:47 | RADIOLOGY REPORT (SQ) ---
EXAM DESCRIPTION: HAND RIGHT 3 VIEWS IMAGES COMPLETED DATE/TIME: 12/29/2019 5:27 pm REASON FOR STUDY: puncture wound base 1st/2nd digits COMPARISON: None. EXAM PARAMETERS: NUMBER OF VIEWS: Three views. TECHNIQUE: AP, lateral and oblique radiographic images acquired of the right hand. LIMITATIONS: None. FINDINGS: MINERALIZATION: Normal. BONES: No acute fracture or dislocation. SOFT TISSUES: No significant soft tissue swelling. No radiopaque foreign body. IMPRESSION: No radiographic evidence for acute fracture at the right hand. TECHNICAL DOCUMENTATION: JOB ID: [id number] 2010 [employer]- All Rights Reserved Reading location - IP/workstation name: [email or web address]
[2019-12-29 19:09] VITALS: BP 118/68
== END 2019-12-29 18:32 | disposition home or self-care (01) ==
LOC: ER 16:58
DX: S61.431A Puncture wound without foreign body of right hand, initial encounter (principal); W27.0XXA Contact with workbench tool, initial encounter; F17.200 Nicotine dependence, unspecified, uncomplicated
CPT/HCPCS: 99283